=== PATIENT | female | born 1970 | race Caucasian/White ===

== ENCOUNTER 2019-10-18 12:57 | Emergency (ER) | payer MEDICAID ==
[~2019-10-18] VITALS: Ht 170.2 cm; Wt 63.5 kg
[2019-10-18 13:16] VITALS: BP 116/69
== END 2019-10-18 13:52 | disposition home or self-care (01) ==
LOC: ER 12:57
DX: E03.9 Hypothyroidism, unspecified (principal); F41.9 Anxiety disorder, unspecified; Z76.0 Encounter for issue of repeat prescription

== ENCOUNTER → 2019-11-09 | Emergency (ER) | payer MEDICAID ==
[~2019-11-09] VITALS: Ht 170.2 cm; Wt 60.8 kg
[2019-11-09 19:45] VITALS: BP 109/56
== END | disposition home or self-care (01) ==
LOC: ER 19:31
DX: F41.9 Anxiety disorder, unspecified (principal); E03.9 Hypothyroidism, unspecified; Z76.0 Encounter for issue of repeat prescription